=== PATIENT | female | born 1950 | race African-American/Black ===

== ENCOUNTER 2024-05-07 00:09 | Inpatient (IN) | payer OTHER, MEDICAID ==
[~2024-05-07] VITALS: Ht 157.5 cm; Wt 81.6 kg
[2024-05-07 00:13] VITALS: BP 140/72; PULSE 84; RESP 18; TEMP 98.4; O2SAT 98
[2024-05-07] MEDS: NACL 0.9% 1,000 ML IV ONE (00:48)
[2024-05-07 00:50] LABS: BASOPHILS # (AUTO) 0.1 K/uL (0.00-0.22); BASOPHILS % (AUTO) 0.6 % (0.0-2.0); EOSINOPHILS # (AUTO) 0.1 K/uL (0-0.4); EOSINOPHILS % (AUTO) 1.3 % (0.0-4.0); HEMATOCRIT 39.1 % (36-48); HEMOGLOBIN 13.1 g/dL (12.0-16.0); LYMPHOCYTES # (AUTO) 0.4 K/uL (2.5-16.5); LYMPHOCYTES % (AUTO) 4.3 % (20.5-51.1); MEAN CORPUSCULAR HEMOGLOBIN 31 pg (27-31); MEAN CORPUSCULAR HGB CONC 33 g/dL (33-37); MEAN CORPUSCULAR VOLUME 92.2 fL (80-94); MONOCYTES # (AUTO) 0.2 K/uL (0.8-1.0); NEUTROPHILS # (AUTO) 8.6 K/uL (1.8-7.7); NEUTROPHILS % (AUTO) 91.8 % (42.2-75.2); PLATELET COUNT (AUTO) 100 K/uL (140-450); RED BLOOD CELL COUNT(AUTO) 4.25 MIL/uL (4.20-5.40); RED CELL DISTRIBUTION WIDTH 14.6 % (11.6-13.7); WHITE BLOOD COUNT (AUTO) 9.4 K/uL (4.8-10.8)
[2024-05-07 00:59] LABS: ANION GAP 9.7 (8-16); CALCIUM 9.3 mg/dL (8.5-10.1); CARBON DIOXIDE 32.5 mmol/L (21-32); CHLORIDE 99 mmol/L (98-107); CREATININE 0.9 mg/dL (0.6-1.3); GLUCOSE 103 mg/dL (74-106); POTASSIUM 3.2 mmol/L (3.5-5.1); SODIUM SERUM 138 mmol/L (136-145); UREA NITROGEN, BLOOD 21 mg/dL (7-18)
[2024-05-07 01:15] LABS: ALANINE AMINOTRANSFERASE 51 U/L (12-78); ALBUMIN 2.4 g/dL (3.4-5.0); ALCOHOL, BLOOD < 3 mg/dL (<10); ALKALINE PHOSPHATASE 82 U/L (50-136); ASPARTATE AMINOTRANSFERASE 39 U/L (15-37); BILIRUBIN,DIRECT 1.3 mg/dL (0.0-0.3); CREATINE KINASE, TOTAL 11 U/L (26-192); MAGNESIUM 1.7 mg/dL (1.8-2.4); PHOSPHORUS 2.6 mg/dL (2.5-4.9); THYROID STIMULATING HORMONE 1.01 uIU/mL (0.34-3.74); TOTAL BILIRUBIN 2.1 mg/dL (0.0-1.0)
[2024-05-07 05:26] LABS: FLU A ANTIGEN NEGATIVE (NEGATIVE); FLU B ANTIGEN NEGATIVE (NEGATIVE)
[2024-05-07 05:46] LABS: APPEARANCE,URINE CLEAR (CLEAR); BILIRUBIN,URINE 2+ (NEGATIVE); BLOOD, URINE TRACE-I (NEGATIVE); COLOR,URINE YELLOW (YELLOW); LEUKOCYTE ESTERASE ,URINE 2+ (NEGATIVE); NITRITE, URINE NEGATIVE (NEGATIVE); PH,URINE 6.5 (5.0-9.0); PROTEIN,URINE 1+ (NEGATIVE); UGLUCOSE TRACE (NEGATIVE); UROBILINOGEN,URINE >=8.0 EU/dL (0.2 - 1)
[2024-05-07 05:51] LABS: RBC,URINE 0-5 /HPF (0-5)
[2024-05-07 05:52] LABS: BACTERIA,URINE 3+ /HPF (None Seen); MUCUS,URINE 2+ /LPF (None Seen); SQUAMOUS EPITHELIAL CELL,UR 50-80 /LPF (0-3 (FEW)); WBC,URINE >25 (MANY) /HPF (0-5)
[2024-05-07 05:55] LABS: AMPHETAMINE, URINE NEGATIVE ng/ml (NEG <=1000); BARBITURATE, URINE NEGATIVE ng/ml (NEG <=200); BENZODIAZEPINE, URINE NEGATIVE ng/mL (NEG <=200); CANNABINOID, URINE NEGATIVE ng/mL (NEG <=50); COCAINE, URINE NEGATIVE ng/mL (NEG <=300); OPIATE, URINE NEGATIVE ng/mL (NEG <=2000); PHENCYCLIDINE SCREEN,URINE NEGATIVE ng/mL (NEG <=25)
[2024-05-07 06:00] LABS: ICTOTEST NEGATIVE (NEGATIVE)
[2024-05-07] MEDS ORDERED: cefTRIAXone 1,000 MG VIAL ONE (06:12)
[2024-05-07] MEDS ORDERED: KCL 20 MEQ IN 100 mL PREMIX 200 ML IV PRN (07:20)
[2024-05-07] MEDS ORDERED: ONDANSETRON 4 MG/2 ML VIAL IVP PRN (07:20)
[2024-05-07] MEDS ORDERED: MORPHINE SULFATE 4 MG/ML SYR IVP PRN (07:20)
[2024-05-07 08:00] VITALS: PULSE 75; RESP 18; O2SAT 98
[2024-05-07] MEDS: NACL 0.9% 1,000 ML IV SCH (09:17)
[2024-05-07] MEDS: CIPROFLOXACIN 0.3% OP 2.5 ML BTL LEFT EYE SCH (09:17)
[2024-05-07] MEDS: DOCUSATE SODIUM 100 MG GELCAP PO SCH (09:18)
[2024-05-07] MEDS: POTASSIUM CHLORIDE 10 MEQ TABER PO PRN (10:35)
[2024-05-07] MEDS: MAGNESIUM OXIDE 400 MG TAB PO PRN (10:36)
[2024-05-07 12:00] VITALS: BP 115/54; PULSE 75; RESP 18; TEMP 97.8; O2SAT 98
[2024-05-07] MEDS: CIPROFLOXACIN 0.3% OP 2.5 ML BTL OP SCH (13:21)
[2024-05-07 16:00] VITALS: BP 116/89; PULSE 76; RESP 18; TEMP 98.5; O2SAT 97
[2024-05-07 20:00] VITALS: BP 104/58; PULSE 71; PULSE 75; RESP 18; RESP 20; TEMP 98.8; O2SAT 95; O2SAT 98
[2024-05-08 04:00] VITALS: BP 99/57; PULSE 61; RESP 20; TEMP 98.3; O2SAT 96
[2024-05-08 06:51] LABS: BASOPHILS % (AUTO) 0.1 % (0.0-2.0); EOSINOPHILS % (AUTO) 0.3 % (0.0-4.0); HEMATOCRIT 36.9 % (36-48); HEMOGLOBIN 12.3 g/dL (12.0-16.0); LYMPHOCYTES # (AUTO) 0.7 K/uL (2.5-16.5); LYMPHOCYTES % (AUTO) 9.6 % (20.5-51.1); MEAN CORPUSCULAR HEMOGLOBIN 30 pg (27-31); MEAN CORPUSCULAR HGB CONC 33 g/dL (33-37); MEAN CORPUSCULAR VOLUME 91.6 fL (80-94); MONOCYTES # (AUTO) 0.6 K/uL (0.8-1.0); MONOCYTES % (AUTO) 7.9 % (1.7-9.3); NEUTROPHILS # (AUTO) 6.1 K/uL (1.8-7.7); NEUTROPHILS % (AUTO) 82.1 % (42.2-75.2); PLATELET COUNT (AUTO) 83 K/uL (140-450); RED BLOOD CELL COUNT(AUTO) 4.03 MIL/uL (4.20-5.40); RED CELL DISTRIBUTION WIDTH 14.7 % (11.6-13.7); WHITE BLOOD COUNT (AUTO) 7.4 K/uL (4.8-10.8)
[2024-05-08 07:02] LABS: ALANINE AMINOTRANSFERASE 41 U/L (12-78); ALBUMIN 1.9 g/dL (3.4-5.0); ALKALINE PHOSPHATASE 75 U/L (50-136); ANION GAP 6.4 (8-16); ASPARTATE AMINOTRANSFERASE 24 U/L (15-37); CALCIUM 8.5 mg/dL (8.5-10.1); CARBON DIOXIDE 32.2 mmol/L (21-32); CHLORIDE 101 mmol/L (98-107); CREATININE 0.8 mg/dL (0.6-1.3); GLUCOSE 101 mg/dL (74-106); MAGNESIUM 1.5 mg/dL (1.8-2.4); POTASSIUM 3.6 mmol/L (3.5-5.1); SODIUM SERUM 136 mmol/L (136-145); TOTAL BILIRUBIN 1.2 mg/dL (0.0-1.0); TOTAL PROTEIN, SERUM 5.2 g/dL (6.4-8.2); UREA NITROGEN, BLOOD 12 mg/dL (7-18)
[2024-05-08 08:00] VITALS: BP 108/54; PULSE 68; RESP 18; TEMP 98.1; O2SAT 99
[2024-05-08 12:00] VITALS: BP 108/54; PULSE 68; RESP 18; TEMP 98.1; O2SAT 99
[2024-05-08] MEDS: MAG SULF 2000 MG/WATER PREMIX 50 ML IV PRN (12:13)
[2024-05-08] MEDS ORDERED: MAG SULF 2000 MG/WATER PREMIX 50 ML IV SCH (14:30)
[2024-05-08 16:00] VITALS: BP 98/54; PULSE 74; RESP 18; TEMP 98.5; O2SAT 96
[2024-05-08 20:00] VITALS: BP 97/55; PULSE 68; RESP 18; TEMP 97.3; O2SAT 96
[2024-05-09] VITALS (8 sets, daily range): BP systolic 90–106; BP diastolic 45–54; PULSE 69–89; RESP 18–20; TEMP 97.2–98.8; O2SAT 91–96
[2024-05-09 06:31] LABS: BASOPHILS % (AUTO) 0.1 % (0.0-2.0); EOSINOPHILS % (AUTO) 0.3 % (0.0-4.0); HEMATOCRIT 33.1 % (36-48); HEMOGLOBIN 11.2 g/dL (12.0-16.0); LYMPHOCYTES # (AUTO) 0.7 K/uL (2.5-16.5); LYMPHOCYTES % (AUTO) 10.1 % (20.5-51.1); MEAN CORPUSCULAR HEMOGLOBIN 31 pg (27-31); MEAN CORPUSCULAR HGB CONC 34 g/dL (33-37); MEAN CORPUSCULAR VOLUME 91.5 fL (80-94); MONOCYTES # (AUTO) 0.6 K/uL (0.8-1.0); MONOCYTES % (AUTO) 8.7 % (1.7-9.3); NEUTROPHILS # (AUTO) 5.9 K/uL (1.8-7.7); NEUTROPHILS % (AUTO) 80.8 % (42.2-75.2); PLATELET COUNT (AUTO) 80 K/uL (140-450); RED BLOOD CELL COUNT(AUTO) 3.61 MIL/uL (4.20-5.40); RED CELL DISTRIBUTION WIDTH 15.2 % (11.6-13.7); WHITE BLOOD COUNT (AUTO) 7.3 K/uL (4.8-10.8)
[2024-05-09 06:54] LABS: ALANINE AMINOTRANSFERASE 27 U/L (12-78); ALBUMIN 1.7 g/dL (3.4-5.0); ALKALINE PHOSPHATASE 70 U/L (50-136); ANION GAP 5.9 (8-16); ASPARTATE AMINOTRANSFERASE 24 U/L (15-37); CARBON DIOXIDE 31.8 mmol/L (21-32); CHLORIDE 102 mmol/L (98-107); CREATININE 0.7 mg/dL (0.6-1.3); GLUCOSE 92 mg/dL (74-106); MAGNESIUM 1.8 mg/dL (1.8-2.4); POTASSIUM 3.7 mmol/L (3.5-5.1); SODIUM SERUM 136 mmol/L (136-145); TOTAL BILIRUBIN 0.8 mg/dL (0.0-1.0); TOTAL PROTEIN, SERUM 4.7 g/dL (6.4-8.2); UREA NITROGEN, BLOOD 8 mg/dL (7-18)
[2024-05-09] MEDS: HYDROcodone/APAP 5/325 MG 1 TAB TAB PO PRN (13:46)
[2024-05-09] MEDS: ACETAMINOPHEN 325 MG TAB PO PRN (23:54)
[2024-05-10 06:38] LABS: BASOPHILS % (AUTO) 0.1 % (0.0-2.0); EOSINOPHILS % (AUTO) 0.6 % (0.0-4.0); HEMATOCRIT 34.8 % (36-48); HEMOGLOBIN 11.4 g/dL (12.0-16.0); LYMPHOCYTES # (AUTO) 0.9 K/uL (2.5-16.5); LYMPHOCYTES % (AUTO) 12.3 % (20.5-51.1); MEAN CORPUSCULAR HEMOGLOBIN 30 pg (27-31); MEAN CORPUSCULAR HGB CONC 33 g/dL (33-37); MEAN CORPUSCULAR VOLUME 91.7 fL (80-94); MONOCYTES # (AUTO) 0.7 K/uL (0.8-1.0); MONOCYTES % (AUTO) 9.4 % (1.7-9.3); NEUTROPHILS # (AUTO) 5.5 K/uL (1.8-7.7); NEUTROPHILS % (AUTO) 77.6 % (42.2-75.2); PLATELET COUNT (AUTO) 87 K/uL (140-450); RED BLOOD CELL COUNT(AUTO) 3.79 MIL/uL (4.20-5.40); RED CELL DISTRIBUTION WIDTH 14.4 % (11.6-13.7); WHITE BLOOD COUNT (AUTO) 7.1 K/uL (4.8-10.8)
[2024-05-10 07:10] LABS: ALANINE AMINOTRANSFERASE 29 U/L (12-78); ALBUMIN 1.7 g/dL (3.4-5.0); ALKALINE PHOSPHATASE 70 U/L (50-136); ANION GAP 7.4 (8-16); ASPARTATE AMINOTRANSFERASE 25 U/L (15-37); CARBON DIOXIDE 30.9 mmol/L (21-32); CHLORIDE 102 mmol/L (98-107); CREATININE 0.7 mg/dL (0.6-1.3); GLUCOSE 95 mg/dL (74-106); MAGNESIUM 1.6 mg/dL (1.8-2.4); POTASSIUM 3.3 mmol/L (3.5-5.1); SODIUM SERUM 137 mmol/L (136-145); TOTAL BILIRUBIN 0.7 mg/dL (0.0-1.0); TOTAL PROTEIN, SERUM 4.9 g/dL (6.4-8.2); UREA NITROGEN, BLOOD 7 mg/dL (7-18)
[2024-05-10 08:00] VITALS: BP 101/51; PULSE 81; RESP 17; TEMP 98.1; O2SAT 94; O2SAT 95
[2024-05-10 11:12] VITALS: O2SAT 93
[2024-05-10 16:00] VITALS: BP 123/53; PULSE 92; RESP 18; TEMP 97.7; O2SAT 95
[2024-05-10] MEDS ORDERED: NITR100C7 PO (17:23)
[2024-05-10 19:36] VITALS: O2SAT 90
[2024-05-10 20:00] VITALS: PULSE 93; RESP 18; O2SAT 93
[2024-05-11] VITALS: BP 132/48; PULSE 86; RESP 18; TEMP 97.4; O2SAT 93
[2024-05-11 02:05] VITALS: O2SAT 93
[2024-05-11 07:03] LABS: BASOPHILS % (AUTO) 0.4 % (0.0-2.0); EOSINOPHILS % (AUTO) 0.7 % (0.0-4.0); HEMATOCRIT 32.5 % (36-48); HEMOGLOBIN 10.7 g/dL (12.0-16.0); LYMPHOCYTES # (AUTO) 0.7 K/uL (2.5-16.5); LYMPHOCYTES % (AUTO) 11.3 % (20.5-51.1); MEAN CORPUSCULAR HEMOGLOBIN 30 pg (27-31); MEAN CORPUSCULAR HGB CONC 33 g/dL (33-37); MEAN CORPUSCULAR VOLUME 91.6 fL (80-94); MONOCYTES # (AUTO) 0.6 K/uL (0.8-1.0); NEUTROPHILS # (AUTO) 4.9 K/uL (1.8-7.7); NEUTROPHILS % (AUTO) 78.6 % (42.2-75.2); PLATELET COUNT (AUTO) 97 K/uL (140-450); RED BLOOD CELL COUNT(AUTO) 3.55 MIL/uL (4.20-5.40); RED CELL DISTRIBUTION WIDTH 14.5 % (11.6-13.7); WHITE BLOOD COUNT (AUTO) 6.3 K/uL (4.8-10.8)
[2024-05-11 08:00] VITALS: BP 133/65; PULSE 85; RESP 18; TEMP 98.3; O2SAT 94; O2SAT 95
[2024-05-11 08:08] LABS: ALANINE AMINOTRANSFERASE 26 U/L (12-78); ALBUMIN 1.7 g/dL (3.4-5.0); ALKALINE PHOSPHATASE 66 U/L (50-136); ANION GAP 3.5 (8-16); ASPARTATE AMINOTRANSFERASE 29 U/L (15-37); CALCIUM 7.8 mg/dL (8.5-10.1); CHLORIDE 104 mmol/L (98-107); CREATININE 0.7 mg/dL (0.6-1.3); GLUCOSE 87 mg/dL (74-106); MAGNESIUM 1.4 mg/dL (1.8-2.4); POTASSIUM 3.5 mmol/L (3.5-5.1); SODIUM SERUM 137 mmol/L (136-145); TOTAL BILIRUBIN 0.7 mg/dL (0.0-1.0); TOTAL PROTEIN, SERUM 4.8 g/dL (6.4-8.2); UREA NITROGEN, BLOOD 5 mg/dL (7-18)
[2024-05-11] MEDS ORDERED: FOAM DRESSING TP PRN (14:35)
[2024-05-11 16:00] VITALS: BP 135/82; PULSE 85; RESP 18; TEMP 98; O2SAT 92
[2024-05-11] MEDS ORDERED: VANCOMYCIN PER PHARMACY MC PRN (16:35)
[2024-05-11] MEDS: VANCOMYCIN 1.25GM PREMIX 250 ML IV SCH (18:08)
[2024-05-11 19:10] VITALS: PULSE 90; RESP 20; O2SAT 99
[2024-05-11 20:00] VITALS: PULSE 93; RESP 18; O2SAT 96
[2024-05-12] VITALS: BP 135/82; PULSE 85; RESP 20; TEMP 98; O2SAT 99
[2024-05-12 06:41] LABS: BASOPHILS % (AUTO) 0.3 % (0.0-2.0); EOSINOPHILS # (AUTO) 0.1 K/uL (0-0.4); EOSINOPHILS % (AUTO) 0.7 % (0.0-4.0); HEMATOCRIT 33.4 % (36-48); LYMPHOCYTES # (AUTO) 0.7 K/uL (2.5-16.5); LYMPHOCYTES % (AUTO) 9.2 % (20.5-51.1); MEAN CORPUSCULAR HEMOGLOBIN 30 pg (27-31); MEAN CORPUSCULAR HGB CONC 33 g/dL (33-37); MEAN CORPUSCULAR VOLUME 91.9 fL (80-94); MONOCYTES # (AUTO) 0.7 K/uL (0.8-1.0); MONOCYTES % (AUTO) 8.9 % (1.7-9.3); NEUTROPHILS # (AUTO) 6.2 K/uL (1.8-7.7); NEUTROPHILS % (AUTO) 80.9 % (42.2-75.2); PLATELET COUNT (AUTO) 114 K/uL (140-450); RED BLOOD CELL COUNT(AUTO) 3.63 MIL/uL (4.20-5.40); RED CELL DISTRIBUTION WIDTH 14.7 % (11.6-13.7); WHITE BLOOD COUNT (AUTO) 7.6 K/uL (4.8-10.8)
[2024-05-12 07:08] LABS: ALANINE AMINOTRANSFERASE 25 U/L (12-78); ALBUMIN 1.8 g/dL (3.4-5.0); ALKALINE PHOSPHATASE 72 U/L (50-136); ANION GAP 8.2 (8-16); ASPARTATE AMINOTRANSFERASE 26 U/L (15-37); CARBON DIOXIDE 29.5 mmol/L (21-32); CHLORIDE 102 mmol/L (98-107); CREATININE 0.7 mg/dL (0.6-1.3); GLUCOSE 93 mg/dL (74-106); MAGNESIUM 1.6 mg/dL (1.8-2.4); POTASSIUM 3.7 mmol/L (3.5-5.1); SODIUM SERUM 136 mmol/L (136-145); TOTAL BILIRUBIN 0.7 mg/dL (0.0-1.0); UREA NITROGEN, BLOOD 4 mg/dL (7-18)
[2024-05-12 08:00] VITALS: BP 124/76; PULSE 84; PULSE 94; RESP 18; RESP 20; TEMP 97.2; O2SAT 96; O2SAT 97
[2024-05-12] MEDS: THERAHONEY GEL 42.5 GM TP PRN (08:32)
[2024-05-12] MEDS: CALCIUM CARB 600 MG TAB PO SCH (09:00)
[2024-05-12] MEDS: MAGNESIUM SULFATE 50% 1,000 MG in NACL 0.9% 50 ML IV SCH (12:35)
[2024-05-12] MEDS: THERAHONEY GEL 42.5 GM TP SCH (13:50)
[2024-05-12] MEDS: FOAM DRESSING TP SCH (13:50)
[2024-05-12 16:00] VITALS: BP 128/64; PULSE 72; RESP 18; TEMP 98.2; O2SAT 97
[2024-05-12 20:00] VITALS: BP 119/66; PULSE 87; PULSE 93; RESP 18; TEMP 98.7; O2SAT 95
[2024-05-12 20:02] VITALS: O2SAT 99
[2024-05-12] MEDS: metroNIDAZOLE 500 MG/NS PREMIX 100 ML IV SCH (23:50)
[2024-05-13 05:50] LABS: ANION GAP 8.2 (8-16); CALCIUM 7.9 mg/dL (8.5-10.1); CARBON DIOXIDE 28.3 mmol/L (21-32); CHLORIDE 103 mmol/L (98-107); CREATININE 0.6 mg/dL (0.6-1.3); GLUCOSE 93 mg/dL (74-106); POTASSIUM 3.5 mmol/L (3.5-5.1); SODIUM SERUM 136 mmol/L (136-145); UREA NITROGEN, BLOOD 3 mg/dL (7-18)
[2024-05-13] MEDS: VANCOMYCIN 1,000 MG VIAL ONE (06:53)
[2024-05-13] MEDS: VANCOMYCIN 500 MG VIAL ONE (06:54)
[2024-05-13 08:00] VITALS: BP 96/63; PULSE 79; RESP 18; TEMP 97.5; O2SAT 95
[2024-05-13 16:00] VITALS: BP 110/55; PULSE 80; RESP 18; TEMP 98.4; O2SAT 97
[2024-05-13 20:00] VITALS: BP_SYST 102; BP_SYST 120; BP_DIAS 44; BP_DIAS 65; PULSE 68; PULSE 78; RESP 17; RESP 18; TEMP 97.9; O2SAT 91; O2SAT 96
[2024-05-13] MEDS: CIPROFLOXACIN 0.3% OP 2.5 ML BTL LEFT EYE SCH (20:45)
[2024-05-14 04:00] VITALS: BP_SYST 116; BP_SYST 95; BP_DIAS 48; BP_DIAS 59; PULSE 78; RESP 18; TEMP 97.2; O2SAT 94
[2024-05-14 05:45] LABS: BASOPHILS % (AUTO) 0.5 % (0.0-2.0); EOSINOPHILS % (AUTO) 0.5 % (0.0-4.0); HEMATOCRIT 29.2 % (36-48); HEMOGLOBIN 9.7 g/dL (12.0-16.0); LYMPHOCYTES # (AUTO) 0.8 K/uL (2.5-16.5); LYMPHOCYTES % (AUTO) 14.7 % (20.5-51.1); MEAN CORPUSCULAR HEMOGLOBIN 31 pg (27-31); MEAN CORPUSCULAR HGB CONC 33 g/dL (33-37); MEAN CORPUSCULAR VOLUME 92.4 fL (80-94); MONOCYTES # (AUTO) 0.6 K/uL (0.8-1.0); MONOCYTES % (AUTO) 10.8 % (1.7-9.3); NEUTROPHILS # (AUTO) 3.9 K/uL (1.8-7.7); NEUTROPHILS % (AUTO) 73.5 % (42.2-75.2); PLATELET COUNT (AUTO) 129 K/uL (140-450); RED BLOOD CELL COUNT(AUTO) 3.16 MIL/uL (4.20-5.40); RED CELL DISTRIBUTION WIDTH 14.6 % (11.6-13.7); WHITE BLOOD COUNT (AUTO) 5.3 K/uL (4.8-10.8)
[2024-05-14 07:26] LABS: ANION GAP 11.1 (8-16); CALCIUM 7.7 mg/dL (8.5-10.1); CARBON DIOXIDE 26.3 mmol/L (21-32); CHLORIDE 103 mmol/L (98-107); CREATININE 0.7 mg/dL (0.6-1.3); GLUCOSE 88 mg/dL (74-106); POTASSIUM 3.4 mmol/L (3.5-5.1); SODIUM SERUM 137 mmol/L (136-145); UREA NITROGEN, BLOOD 5 mg/dL (7-18)
[2024-05-14 08:00] VITALS: BP 99/63; PULSE 79; RESP 18; TEMP 97.8; O2SAT 92
[2024-05-14 16:00] VITALS: BP 97/52; PULSE 73; RESP 18; TEMP 98.3; O2SAT 96
[2024-05-14 20:00] VITALS: BP 102/48; PULSE 90; RESP 18; TEMP 98.2; O2SAT 96
[2024-05-15 08:00] VITALS: BP 160/75; PULSE 78; PULSE 84; RESP 18; TEMP 98.5; O2SAT 93; O2SAT 96
[2024-05-15 16:00] VITALS: BP 98/55; PULSE 80; RESP 18; TEMP 98.8; O2SAT 94
[2024-05-15 20:00] VITALS: PULSE 64; RESP 18; O2SAT 100
[2024-05-16] VITALS: BP 98/55; PULSE 64; RESP 18; TEMP 98.8; O2SAT 100
[2024-05-16 08:00] VITALS: BP 105/63; PULSE 83; RESP 18; TEMP 99.9; O2SAT 93
[2024-05-16] MEDS: CIPROFLOXACIN 0.3% OP 2.5 ML BTL LEFT EYE SCH (13:52)
[2024-05-16 16:00] VITALS: BP 94/60; PULSE 73; RESP 18; TEMP 98.4; O2SAT 98
[2024-05-16 20:00] VITALS: BP_SYST 100; BP_SYST 118; BP_DIAS 50; BP_DIAS 56; PULSE 80; RESP 19; TEMP 98.1; O2SAT 95
[2024-05-16 21:02] VITALS: PULSE 83; RESP 18; O2SAT 98
[2024-05-17 04:00] VITALS: BP 106/66; PULSE 76; RESP 18; TEMP 98; O2SAT 96
[2024-05-17 08:00] VITALS: BP 108/58; PULSE 72; RESP 18; TEMP 98.9; O2SAT 100
[2024-05-17 16:00] VITALS: BP 90/45; PULSE 82; RESP 18; TEMP 98.4; O2SAT 98
[2024-05-17 20:00] VITALS: BP_SYST 101; BP_SYST 90; BP_DIAS 54; BP_DIAS 56; PULSE 87; RESP 19; TEMP 98.4; O2SAT 100; O2SAT 95
[2024-05-17 20:19] VITALS: PULSE 65; RESP 20; O2SAT 95
[2024-05-17] MEDS ORDERED: VANCOMYCIN PER PHARMACY MC PRN (22:20)
[2024-05-17] MEDS: VANCOMYCIN 1GM/DEXT 5% PREMIX 200 ML IV ONE (22:25)
[2024-05-17 23:43] VITALS: O2SAT 95
[2024-05-18] VITALS (7 sets, daily range): BP systolic 90–138; BP diastolic 51–73; PULSE 79–94; RESP 18–19; TEMP 97.5–98.4; O2SAT 94–97
[2024-05-18] MEDS: VANCOMYCIN 1,000 MG VIAL ONE (00:09)
[2024-05-18] MEDS: cefTRIAXone 1,000 MG VIAL ONE (00:10)
[2024-05-18 09:23] LABS: ANION GAP 7.7 (8-16); BASOPHILS % (AUTO) 0.7 % (0.0-2.0); CALCIUM 7.6 mg/dL (8.5-10.1); CARBON DIOXIDE 31.7 mmol/L (21-32); CHLORIDE 104 mmol/L (98-107); CREATININE 0.6 mg/dL (0.6-1.3); EOSINOPHILS % (AUTO) 0.5 % (0.0-4.0); GLUCOSE 103 mg/dL (74-106); HEMATOCRIT 28.9 % (36-48); HEMOGLOBIN 9.6 g/dL (12.0-16.0); LYMPHOCYTES # (AUTO) 0.7 K/uL (2.5-16.5); LYMPHOCYTES % (AUTO) 14.9 % (20.5-51.1); MEAN CORPUSCULAR HEMOGLOBIN 31 pg (27-31); MEAN CORPUSCULAR HGB CONC 33 g/dL (33-37); MEAN CORPUSCULAR VOLUME 91.9 fL (80-94); MONOCYTES # (AUTO) 0.5 K/uL (0.8-1.0); MONOCYTES % (AUTO) 10.6 % (1.7-9.3); NEUTROPHILS # (AUTO) 3.5 K/uL (1.8-7.7); NEUTROPHILS % (AUTO) 73.3 % (42.2-75.2); PLATELET COUNT (AUTO) 150 K/uL (140-450); POTASSIUM 3.4 mmol/L (3.5-5.1); RED BLOOD CELL COUNT(AUTO) 3.15 MIL/uL (4.20-5.40); RED CELL DISTRIBUTION WIDTH 15.4 % (11.6-13.7); SODIUM SERUM 140 mmol/L (136-145); UREA NITROGEN, BLOOD 2 mg/dL (7-18); WHITE BLOOD COUNT (AUTO) 4.8 K/uL (4.8-10.8)
[2024-05-18] MEDS: VANCOMYCIN 1.25GM PREMIX 250 ML IV SCH (14:21)
== END 2024-05-18 23:58 | disposition short-term general hospital (02) | DRG 640 ==
LOC: MED 00:09 → MTU 07:16
PROVIDERS: ADMIT Internal Medicine; ATTEND Internal Medicine
DX: E86.0 Dehydration (principal); G93.41 Metabolic encephalopathy; N39.0 Urinary tract infection, site not specified; E46 Unspecified protein-calorie malnutrition; H05.012 Cellulitis of left orbit; L03.213 Periorbital cellulitis; Z20.822 Contact with and (suspected) exposure to COVID-19; H54.62 Unqualified visual loss, left eye, normal vision right eye; I51.7 Cardiomegaly; E87.6 Hypokalemia; E83.42 Hypomagnesemia; R62.7 Adult failure to thrive; Z68.32 Body mass index [BMI] 32.0-32.9, adult
CPT/HCPCS: 36415; 70450; 70480; 71045; 80048; 80053; 80076; 80202; 80305; 81001; 82550; 83735; 84100; 84443; 84484; 85025; 87070; 87081; 87086; 93005; 96361; 96365; 97112; 97163-GP; 99285; G0482; J0696; J1644; J3370; J3372; J3475; J3490; J7060; Q0092